=== PATIENT | male | born 1990 | race Two or more races ===

== ENCOUNTER 2019-06-29 12:03 | Emergency (ER) | payer MEDICAID ==
[~2019-06-29] VITALS: Ht 185.4 cm; Wt 145.0 kg
[2019-06-29 12:07] VITALS: BP 140/74
== END 2019-06-29 18:41 | disposition left against medical advice (07) ==
LOC: ER 12:03
DX: Z53.21 Procedure and treatment not carried out due to patient leaving prior to being seen by health care provider (principal)